=== PATIENT | male | born 1960 | race Caucasian/White ===

== ENCOUNTER 2017-01-07 09:12 | Emergency (ER) | payer OTHER, BC ==
[2017-01-07 09:16] VITALS: BP 146/89; PULSE 79; TEMP 98; BMI 27.6
[2017-01-07] MEDS ORDERED: predniSONE 20 MG TABLET (UD) PO ONE (10:06)
--- NOTE | 2017-01-07 10:12 | PDOC ---
History of Present Illness - General Chief Complaint: Back Pain Stated Complaint: BACK PAIN Time Seen by Provider: 01/07/17 09:56 History Source: Patient Exam Limitations: No Limitations - History of Present Illness Initial Comments: 01/07/17 10:07 56 yr male with acute low back pain and spasm after lifting heavy ladder off the top fo his van. Pt felt his legs buckle. no saddle anesthesia no bowel or bladder dysfunction. 01/07/17 10:10 Occurred: reports: this morning Pain Location: reports: back Past History - Past Medical History Allergies/Adverse Reactions: Allergies Allergy/AdvReac Type Severity Reaction Status Date / Time No Known Allergies Allergy Verified 01/07/17 09:17 Home Medications: Ambulatory Orders Cyclobenzaprine HCl [Flexeril 10 mg] 5 mg PO TID PRN #21 tablet 01/07/17 Methylprednisolone [Medrol Dose Juan Carlos] 4 mg PO ASDIR #21 tablet 01/07/17 Naproxen [Naprosyn -] 500 mg PO BID PRN #14 tablet 01/07/17 Anemia: No Asthma: No Cancer: No Cardiac Disorders: No CVA: No COPD: No CHF: No Dementia: No Diabetes: No GI Disorders: Yes (COLONIC POLYPS) Disorders: No HTN: No Hypercholesterolemia: No Liver Disease: No Seizures: No Thyroid Disease: No - Surgical History Abdominal Surgery: No Appendectomy: No Cardiac Surgery: No Cholecystectomy: No Lung Surgery: No Neurologic Surgery: No Orthopedic Surgery: Yes ([place] Rotator Cuff Repair,Exc Ganglion Right Wrist) - Psycho/Social/Smoking Cessation Hx Suicidal Ideation: No Smoking History: Current every day smoker Have you smoked in the past 12 months: Yes Number of Cigarettes Smoked Daily: 20 Information on smoking cessation initiated: No 'Breaking Loose' booklet given: 05/14/13 Hx Alcohol Use: Yes (weekends, socially) Drug/Substance Use Hx: No Substance Use Type: Alcohol, Marijuana Hx Substance Use Treatment: No Trauma Specific PMHX - Complaint Specific PMHX Back Injury: Yes (years ago ) Neck Injury: Yes (years ago ) Review of Systems - Review of Systems Able to Perform ROS?: Yes Is the patient limited Beninese proficient: No Constitutional: No: Symptoms Reported HEENTM: No: Symptoms Reported Respiratory: No: Symptoms reported Cardiac (ROS): No: Symptoms Reported ABD/GI: No: Symptoms Reported : No: Symptoms Reported Musculoskeletal: Yes: See HPI, Back Pain *Physical Exam - Vital Signs Last Vital Signs Temp Pulse Resp BP Pulse Ox 98 F 79 18 146/89 99 01/07/17 09:13 01/07/17 09:13 01/07/17 09:13 01/07/17 09:13 01/07/17 09:13 - Physical Exam General Appearance: Yes: Nourished, Appropriately Dressed HEENT: positive: EOMI, KATHERIN Neck: positive: Supple. negative: Tender Respiratory/Chest: positive: Lungs Clear, Normal Breath Sounds Cardiovascular: positive: Regular Rhythm, Regular Rate Gastrointestinal/Abdominal: positive: Normal Bowel Sounds, Soft Musculoskeletal: positive: Normal Inspection, Decreased Range of Motion, Muscle Spasm (paraspinal lumbar area, neg vetebral tenderness, neg straight leg raise bilaterally ). negative: CVA Tenderness, CVA Tenderness (R) Extremity: positive: Normal Capillary Refill, Normal Inspection, Normal Range of Motion Integumentary: positive: Normal Color, Dry, Warm Neurologic: positive: Fully Oriented, Alert, Normal Mood/Affect, Normal Response , Motor Strength 5/5 Medical Decision Making - Medical Decision Making 01/07/17 10:12 cc: acute low back pain while lifting ladder off truck pt felt spasm and pain *DC/Admit/Observation/Transfer Diagnosis at time of Disposition: Low back pain Qualifiers: Chronicity: acute Back pain laterality: bilateral Sciatica presence: without sciatica Qualified Code(s): M54.5 - Low back pain - Discharge Dispostion Disposition: HOME Condition at time of disposition: Good - Prescriptions Prescriptions: Cyclobenzaprine HCl [Flexeril 10 mg] 5 mg PO TID PRN #21 tablet PRN Reason: Muscle Spasms Methylprednisolone [Medrol Dose Juan Carlos] 4 mg PO ASDIR #21 tablet Naproxen [Naprosyn -] 500 mg PO BID PRN #14 tablet PRN Reason: Back Pain - Referrals Referrals: Johanne Matute MD [Primary Care Provider] - Peter Mccabe [Non Staff, Medical] - - Patient Instructions Additional Instructions: take flexeril for muscle spasm as directed DO NOT DRIVE, OPERATE MACHINEY OR DRINK ALCOHOL WHILE TAKING FLEXERIL IT MAY MAKE YOU SLEEPY take the medrol dose pack as directed, next dose tomorrow you may take naprosyn every 12hrs for pain follow with the orthopedist at [facility] in 3-5 days rest at home do not stay in one position all the time, move around to prevent spams return to ER for any worsening symptoms
[2017-01-07] MEDS ORDERED: predniSONE 20 MG TABLET (UD) ONE (10:13)
== END 2017-01-07 10:48 | disposition home or self-care (01) ==
LOC: JERFT 09:12
DX: M54.5 Low back pain (principal); M62.830 Muscle spasm of back; X50.0XXA Overexertion from strenuous movement or load, initial encounter; X50.9XXA Other and unspecified overexertion or strenuous movements or postures, initial encounter; Y93.89 Activity, other specified; Y92.89 Other specified places as the place of occurrence of the external cause
CPT/HCPCS: 99281-25

== ENCOUNTER 2018-02-23 07:18 | Day surgery (SDC) | payer BC ==
[2018-02-18 10:42] VITALS: BMI 26.6
[2018-02-23] MEDS ORDERED: PROPOFOL 20 ML ONE ×2 (07:25)
[2018-02-23] MEDS ORDERED: LIDOCAINE HCL/PF 2% SDV 5ML VIAL ONE (07:26)
[2018-02-23 09:31] VITALS: BP 101/65; PULSE 63; TEMP 97.6
--- NOTE | 2018-02-25 12:51 | PATH ---
Surgical Pathology Report Patient Name: JOSE ALLEN [facility]. Rec. #: [id number] /Age/Gender: 1960 (Age: 57) / M Account: [id number] Location: [facility]OS[facility] Taken: 02/23/2018 Received: 02/23/2018 Reported: 02/25/2018 Physicians: Salvador Lambert M.D. Specimen(s) Received A: HEPATIC FLEXTURE B: POLYP OF RIGHT COLON Clinical History History of polyps Postoperative diagnosis: Polyps Final Diagnosis A. HEPATIC FLEXURE, POLYP, BIOPSY: TUBULAR ADENOMA. B. RIGHT COLON, POLYP, BIOPSY: TUBULAR ADENOMA. Electronically Signed Nae Kevin M.D. Gross Description A. Received in formalin, labeled "polyp of hepatic flexure" is a ng, irregular portion of soft tissue measuring 0.1 cm. in greatest dimension. The specimen is submitted in toto in one cassette. B. Received in formalin, labeled "polyp of right colon" is a ng, irregular portion of soft tissue measuring 0.2 cm. in greatest dimension. The specimen is submitted in toto in one cassette. /02/23/2018 saudi02/23/2018
== END 2018-02-23 09:30 | disposition home or self-care (01) ==
LOC: FASU-ENDO 07:18
PROVIDERS: ATTEND Internal Medicine Gastroenterology
PROC: 0DBK8ZX Excision of Ascending Colon, Via Natural or Artificial Opening Endoscopic, Diagnostic (ICD-10-PCS; principal; 2018-02-23 08:31)
PROC: 0DBL8ZX Excision of Transverse Colon, Via Natural or Artificial Opening Endoscopic, Diagnostic (ICD-10-PCS; 2018-02-23 08:31)
DX: Z86.010 Personal history of colon polyps (principal); D12.3 Benign neoplasm of transverse colon; D12.2 Benign neoplasm of ascending colon; K57.30 Diverticulosis of large intestine without perforation or abscess without bleeding
CPT/HCPCS: 88305-TC

== ENCOUNTER 2018-08-05 07:16 | Day surgery (SDC) | payer BC ==
[2018-07-30 15:51] VITALS: BMI 24.0
[2018-08-05 07:49] VITALS: TEMP 97.8
[2018-08-05] MEDS ORDERED: PROPOFOL 20 ML ONE ×2 (08:02)
[2018-08-05 09:11] VITALS: BP 114/74; PULSE 74
--- NOTE | 2018-08-06 17:26 | PATH ---
Surgical Pathology Report Patient Name: JOSE ALLEN [facility] Rec. #: [id number] /Age/Gender: 1960 (Age: 57) / M Account: [id number] Location: [facility] Taken: 08/05/2018 Received: 08/05/2018 Reported: 08/06/2018 Physicians: Salvador Lambert M.D. Specimen(s) Received A: BX DUODENUM B: BX ANTRUM C: FUNDAL POLYP Clinical History Peptic ulcer disease, weight loss Postoperative diagnosis: Gastritis, fundal polyp Final Diagnosis A. DUODENUM, BIOPSY: DUODENUM MUCOSA WITH HETEROTOPIC GASTRIC MUCOSA. NO HISTOLOGIC EVIDENCE OF CELIAC DISEASE. B. ANTRUM, BIOPSY: GASTRIC MUCOSA WITH REACTIVE GASTROPATHY. IMMUNOSTAIN IS NEGATIVE FOR H. PYLORI ORGANISMS. NEGATIVE FOR INTESTINAL METAPLASIA. C. FUNGAL POLYP, BIOPSY: FUNDIC GLAND POLYP. IMMUNOSTAIN IS NEGATIVE FOR H. PYLORI ORGANISMS. Electronically Signed Dayne Matute M.D. Gross Description A. Received in formalin, labeled "duodenum" is a ng, irregular portion of soft tissue measuring 0.3 cm. in greatest dimension. The specimen is submitted in toto in one cassette. B. Received in formalin, labeled "antrum" are 2 ng, irregular portions of soft tissue averaging 0.3 cm. in greatest dimension. The specimens are submitted in toto in one cassette. C. Received in formalin, labeled "fundal polyp" is a ng, irregular portion of soft tissue measuring 0.5 cm. in greatest dimension. The specimen is submitted in toto in one cassette. /08/05/2018 saudi08/05/2018
== END 2018-08-05 09:11 | disposition home or self-care (01) ==
LOC: FASU-ENDO 07:16
PROVIDERS: ATTEND Internal Medicine Gastroenterology
PROC: 0DB98ZX Excision of Duodenum, Via Natural or Artificial Opening Endoscopic, Diagnostic (ICD-10-PCS; principal; 2018-08-05 08:24)
PROC: 0DB68ZX Excision of Stomach, Via Natural or Artificial Opening Endoscopic, Diagnostic (ICD-10-PCS; 2018-08-05 08:24)
DX: K31.7 Polyp of stomach and duodenum (principal); K29.70 Gastritis, unspecified, without bleeding; K31.89 Other diseases of stomach and duodenum; K44.9 Diaphragmatic hernia without obstruction or gangrene; R63.4 Abnormal weight loss
CPT/HCPCS: 88305-TC; 88342-TC

== ENCOUNTER 2022-06-13 17:56 | Emergency (ER) | payer BC ==
[2022-06-13 18:14] VITALS: BP 141/90; PULSE 66; RESP 20; TEMP 98; BMI 24.3
== END 2022-06-13 19:02 | disposition home or self-care (01) ==
LOC: FER 17:56
DX: S14.3XXA Injury of brachial plexus, initial encounter (principal); Y99.9 Unspecified external cause status
CPT/HCPCS: 73030-TC-LT-FY; 99283-25

== ENCOUNTER 2023-11-27 07:30 | Day surgery (SDC) | payer BC ==
[2023-11-25 09:33] VITALS: BMI 25.0
[2023-11-27 14:18] VITALS: BP 94/56; PULSE 55; RESP 18; TEMP 98.2
== END 2023-11-27 10:05 | disposition home or self-care (01) ==
LOC: FASU-ENDO 07:30
PROVIDERS: ATTEND Internal Medicine Gastroenterology
PROC: 0DBL8ZX Excision of Transverse Colon, Via Natural or Artificial Opening Endoscopic, Diagnostic (ICD-10-PCS; 2023-11-27)
PROC: 0DBN8ZX Excision of Sigmoid Colon, Via Natural or Artificial Opening Endoscopic, Diagnostic (ICD-10-PCS; 2023-11-27)
PROC: 0DBH8ZX Excision of Cecum, Via Natural or Artificial Opening Endoscopic, Diagnostic (ICD-10-PCS; principal; 2023-11-27 08:49)
DX: Z12.11 Encounter for screening for malignant neoplasm of colon (principal); D12.0 Benign neoplasm of cecum; D12.3 Benign neoplasm of transverse colon; K63.5 Polyp of colon; K57.30 Diverticulosis of large intestine without perforation or abscess without bleeding; Z86.010 Personal history of colon polyps
CPT/HCPCS: 88305-TC